=== PATIENT | female | born 1960 | race Caucasian/White ===

== ENCOUNTER 2017-12-28 12:15 | Emergency (ER) | payer MEDICARE, MEDICAID ==
[2017-12-28 14:09] VITALS: BP 121/82
--- NOTE | 2017-12-28 15:22 | UC ---
UC General HPI - HPI Summary HPI Summary: pt presents with a clinical research scientist. she is c/o a 3 days hx burn with urination. states hx of some vaginal d/c but none now. pt notes "you will not look down there". pt also c/o sometimes having abdominal pain but takes her bentyl for that. no pain at time of exam. - History of Current Complaint Chief Complaint: UCGU Stated Complaint: RIGHT SIDED ABD PAIN Time Seen by Provider: 12/28/17 14:57 Hx Obtained From: Patient, Family/Social Work Coordinator Onset/Duration: Gradual Onset Timing: Constant Onset Severity: Mild Pain Intensity: 0 Aggravating: nothing Alleviating: nothing Associated Signs & Symptoms: Positive: Dysuria. Negative: Diarrhea, Fever, Vomiting Similar Episode/Dx as: UTI - Allergy/Home Medications Allergies/Adverse Reactions: Allergies Allergy/AdvReac Type Severity Reaction Status Date / Time amoxicillin Allergy Unknown Verified 12/28/17 14:01 Reaction Details Penicillins Allergy Rash Verified 12/28/17 14:01 band aids Allergy Rash Uncoded 12/28/17 14:01 Home Medications: Home Medications Calcium Carbonate CHEW TAB* [Tums*] 500 mg PO BID PRN 12/28/17 [History Confirmed 12/28/17] Dicyclomine CAP* [Bentyl CAP*] 10 mg PO Q4H PRN 12/28/17 [History Confirmed ] Mag Hydrox/Aluminum Hyd/Simeth [Antacid M Liquid] 10 ml PO Q4H PRN 12/28/17 [ History Confirmed 12/28/17] Oxybutynin Chloride [Ditropan Xl] 10 mg PO DAILY 12/28/17 [History Confirmed ] Propranolol HCl [Propranolol HCl ER] 60 mg PO BEDTIME 12/28/17 [History Confirmed 12/28/17] Saliva Substitute Combo No.9 [Biotene] 15 ml MT DAILY 12/28/17 [History Confirmed 12/28/17] busPIRone TAB* [Buspar TAB *] 15 mg PO BID 12/28/17 [History Confirmed 12/28/17] PMH/Surg Hx/FS Hx/Imm Hx Previously Healthy: No - per triage as well Endocrine History: Thyroid Disease Psychological History: Depression - Surgical History Surgical History: Yes Surgery Procedure, Year, and Place: hysterectomy, gallbladder - Family History Known Family History: Positive: Other - [place] - Social History Occupation: Disabled Lives: Care Home Alcohol Use: None Substance Use Type: None Smoking Status (MU): Never Smoked Tobacco - Immunization History Vaccination Up to Date: Yes Review of Systems Constitutional: Negative Skin: Negative Eyes: Negative ENT: Negative Respiratory: Negative Cardiovascular: Negative Gastrointestinal: Negative Genitourinary: Dysuria Motor: Negative Neurovascular: Negative Musculoskeletal: Negative Neurological: Negative Psychological: Negative Is Patient Immunocompromised?: No All Other Systems Reviewed And Are Negative: Yes Physical Exam Triage Information Reviewed: Yes Vital Signs: Initial Vital Signs Temp 97.8 F 12/28/17 14:02 Pulse 61 12/28/17 14:02 Resp 18 12/28/17 14:02 BP 121/82 12/28/17 14:02 Pulse Ox 98 12/28/17 14:02 Vital Signs Reviewed: Yes Eye Exam: Normal ENT: Positive: Normal ENT inspection Neck: Positive: Supple, Nontender, No Lymphadenopathy Respiratory: Positive: Lungs clear, Normal breath sounds Cardiovascular: Positive: RRR, No Murmur Abdomen Description: Positive: Nontender, No Organomegaly, Soft. Negative: CVA Tenderness (R), CVA Tenderness (L), Distended, Guarding Bowel Sounds: Positive: Present Musculoskeletal: Positive: ROM Intact Neurological: Positive: Alert Psychological Exam: Other - normal response per clinical research scientist Skin Exam: Normal Diagnostics - Laboratory Diagnostic Studies Completed/Ordered: 2+ leukocytes on u/a. Course/Dx - Course Course Of Treatment: non toxic, no acute abdomen or abdominal pain at time of exam. u/a= + leukocytes, will tx for uti with culture pending. pt is refusing any type of gu inspection. - Differential Dx - Multi-Symptom Provider Diagnoses: dysuria Discharge - Discharge Plan Condition: Stable Disposition: HOME Prescriptions: Sulfamethox/Trimethoprim DS* [Bactrim DS 800/160 TAB*] 1 tab PO BID 3 Days #6 tab Patient Education Materials: Urinary Tract Infection in Women (DC) Referrals: Juanita Murry MD [Primary Care Provider] - 5 Days
== END 2017-12-28 16:02 | disposition home or self-care (01) ==
LOC: UCCORT 12:15
DX: R30.0 Dysuria (principal)
CPT/HCPCS: 81003; 87086; 99202; G0463

== ENCOUNTER 2018-04-10 14:21 | Emergency (ER) | payer MEDICARE, MEDICAID ==
[2018-04-10 14:40] VITALS: BP 110/64
--- NOTE | 2018-04-10 14:50 | UC ---
UC General HPI - HPI Summary HPI Summary: pt and her lamination machine operator notes she has sores and swelling in her left cheek for 2 days. pt denies dental pain but is to have 3 teeth on other side pulled next week. no fever. - History of Current Complaint Chief Complaint: UCGeneralIllness Stated Complaint: SWOLLEN GLANDS/SORES IN MOUTH Time Seen by Provider: 04/10/18 14:43 Hx Obtained From: Patient, Family/Foundry Finisher Onset/Duration: Gradual Onset Timing: Constant Pain Intensity: 8 Aggravating: nothing Alleviating: nothing Associated Signs & Symptoms: Negative: Fever - Allergy/Home Medications Allergies/Adverse Reactions: Allergies Allergy/AdvReac Type Severity Reaction Status Date / Time amoxicillin Allergy Unknown Verified 12/28/17 14:01 Reaction Details Penicillins Allergy Rash Verified 12/28/17 14:01 band aids Allergy Rash Uncoded 12/28/17 14:01 Home Medications: Home Medications Guaifenesin/Dextromethorphan [Guaifenesin Dm Syrup] 5 ml PO Q4H PRN 04/10/18 [ History Confirmed 04/10/18] PMH/Surg Hx/FS Hx/Imm Hx - Additional Past Medical History Additional PMH: IBS, cognitive limitation, impulse control disorder Endocrine History: Thyroid Disease Cardiovascular History: Hypertension Psychological History: Depression - Surgical History Surgical History: Yes Surgery Procedure, Year, and Place: hysterectomy, gallbladder - Family History Known Family History: Positive: Other - [place] - Social History Occupation: Disabled Lives: Snf Alcohol Use: None Substance Use Type: None Smoking Status (MU): Never Smoked Tobacco - Immunization History Vaccination Up to Date: Yes Review of Systems Constitutional: Negative Skin: Negative Eyes: Negative ENT: Negative Respiratory: Negative Cardiovascular: Negative Gastrointestinal: Negative Genitourinary: Negative Motor: Negative Neurovascular: Negative Musculoskeletal: Negative Neurological: Negative Psychological: Negative Is Patient Immunocompromised?: No All Other Systems Reviewed And Are Negative: Yes Physical Exam Triage Information Reviewed: Yes Appearance: Well-Appearing Vital Signs: Initial Vital Signs Temp 99.7 F 04/10/18 14:34 Pulse 72 04/10/18 14:34 Resp 16 04/10/18 14:34 BP 110/64 04/10/18 14:34 Pulse Ox 98 04/10/18 14:34 Eyes: Positive: Conjunctiva Clear ENT: Positive: Pharynx normal, TMs normal. Negative: Pharyngeal erythema, Nasal drainage Dental: Positive: Gross Decay/Caries @ - L upper molar, lateral sharp edge. adjacent cheek has uceration with tenderness and swelling from fx tooth. not fluctuant. Neck: Positive: Supple, Nontender, No Lymphadenopathy Respiratory: Positive: Lungs clear, Normal breath sounds Cardiovascular: Positive: RRR, No Murmur Abdomen Description: Positive: Nontender, No Organomegaly, Soft Bowel Sounds: Positive: Present Musculoskeletal: Positive: ROM Intact Neurological: Positive: Alert Psychological: Positive: Age Appropriate Behavior - baseline for pt per lamination machine operator Skin Exam: Normal Course/Dx - Course Course Of Treatment: pcn allergy but rxn not known thus will cover with clindamycin with dental and pcp referal. - Differential Dx - Multi-Symptom Provider Diagnoses: fx/decay L upper molar with secondary infected ulceration L cheek from sharp edge. Discharge - Sign-Out/Discharge Documenting (check all that apply): Discharge/Admit/Transfer - Discharge Plan Condition: Critical Disposition: HOME Prescriptions: Clindamycin Cap(NF) [Clindamycin Cap 300 mg Cap(NF)] 300 mg PO TID 7 Days #21 cap Patient Education Materials: Canker Sores (ED) Referrals: Juanita Murry MD [Primary Care Provider] - 2 Days Additional Instructions: DIAGNOSIS: DECAY AND FRACTURE TO LEFT UPPER MOLAR CAUSING INFECTED ULCERATION LEFT CHEEK FOLLOW UP DR VALLE, YOUR DENTIST SOON POSSIBLE - Billing Disposition and Condition Condition: CRITICAL Disposition: HOME
[2018-04-10] MEDS ORDERED: Ibuprofen ADULT LIQ* 600 MG/30 ML UDC PO ONE (14:58)
== END 2018-04-10 15:16 | disposition home or self-care (01) ==
LOC: UCCORT 14:21
DX: K02.9 Dental caries, unspecified (principal); S02.5XXA Fracture of tooth (traumatic), initial encounter for closed fracture; K12.1 Other forms of stomatitis; B99.8 Other infectious disease; Z88.0 Allergy status to penicillin; Z91.048 Other nonmedicinal substance allergy status; I10 Essential (primary) hypertension
CPT/HCPCS: 99212; A9270-GY; G0463

== ENCOUNTER 2018-09-16 18:46 | Emergency (ER) | payer MEDICARE, MEDICAID ==
[2018-09-16 19:24] VITALS: BP 123/96
--- NOTE | 2018-09-16 19:54 | UC ---
Laceration HPI - HPI Summary HPI Summary: 58 y/o female presents to the urgent care accompany by family welfare social work professor from the Home group c/o cutting her left ring finger w/ a glass while washing dishes around 1800PM. Pt states bleeding stopped w/ pressure. Pain is 3/10 w/ touch. She can move finger w/o any difficulty. dry cure worker is not sure when was last Tetanus vaccines. She looked at records and called penitentiary w/o any answer. Pt denies fever. numbness or tingling sensation over the finger. SOB, chest pain , abdominal pain< N/V/D. - History Of Current Complaint Chief Complaint: UCWounds Stated Complaint: LEFT RING FINGER LACERATION Time Seen by Provider: 09/16/18 19:52 Hx Obtained From: Patient Laceration Location: Finger - left ring finger laceration while washing the dishes Mechanism Of Injury: Sharp Trauma Onset/Duration: Sudden Onset - around 1800pm, Lasting Hours Severity: Mild Pain Intensity: 2 Pain Scale Used: 0-10 Numeric Aggravating Factors: Movement Related History: Dominant Hand Right - Allergies/Home Medications Allergies/Adverse Reactions: Allergies Allergy/AdvReac Type Severity Reaction Status Date / Time amoxicillin Allergy Unknown Verified 09/16/18 19:08 Reaction Details Penicillins Allergy Rash Verified 09/16/18 19:08 band aids Allergy Rash Uncoded 09/16/18 19:08 Home Medications: Home Medications Carbamide Peroxide 6.5% OTIC* [DEBROX 6.5% Otic*] 5 drop LEFT EAR BEDTIME PRN [History Confirmed 09/16/18] Liquid Band-Aid 1 udc TOPICAL DAILY PRN 09/16/18 [History Confirmed 09/16/18] Melatonin/Pyridoxine HCl (B6) [Melatonin 5 mg Tablet] 1 tab PO BEDTIME 09/16/18 [History Confirmed 09/16/18] Methyl Salicylate/Menthol [Bengay Greaseless Cream] 1 cre EX DAILY PRN 09/16/18 [History Confirmed 09/16/18] Neomycin/Bacitracin/Polymyxinb [Triple Antibiotic Ointment] 1 each TP TID PRN [History Confirmed 09/16/18] Phenyleph/Mineral Oil/Petrolat [Preparation H Ointment] 1 oin SC BID PRN [History Confirmed 09/16/18] Propranolol TAB* [Inderal TAB*] 40 mg PO BEDTIME 09/16/18 [History Confirmed 03/29] buPROPion SR TAB* [Wellbutrin SR TAB*] 200 mg PO DAILY 09/16/18 [History Confirmed 09/16/18] PMH/Surg Hx/FS Hx/Imm Hx Previously Healthy: Yes Endocrine History: Hypothyroidism Cardiovascular History: Hypertension Other GI/ History: Constipation, IBS Psychological History: Anxiety, Depression Other Psychological History: Intellectual disabilities - Surgical History Surgical History: Yes Surgery Procedure, Year, and Place: hysterectomy, gallbladder - Family History Known Family History: Positive: Hypertension, Other - [place] - Social History Occupation: Disabled Lives: Care Home Alcohol Use: None Substance Use Type: None Smoking Status (MU): Never Smoked Tobacco - Immunization History Hx Tetanus, Diphtheria Vaccination: No - unsure when was the tetanus vaccine Vaccination Up to Date: Yes Review of Systems Constitutional: Negative Skin: Other - laceration w/ a glass while washing dishes on left ring finger Eyes: Negative ENT: Negative Respiratory: Negative Cardiovascular: Negative Gastrointestinal: Negative Motor: Negative Neurovascular: Negative Musculoskeletal: Other: - left ring finger pain s/p laceration Neurological: Negative Psychological: Negative Is Patient Immunocompromised?: No All Other Systems Reviewed And Are Negative: Yes Physical Exam - Summary Physical Exam Summary: Vital Signs Reviewed: Yes General: well developed, well nourished Obese female sitting in the examining table w/o any apparent distress Eye Exam: Normal Eyes: Positive: Conjunctiva Clear - PERRLA, EOMI, fundi grossly normal ENT: Positive: Normal ENT inspection, Hearing grossly normal, Pharynx normal, TMs normal Neck: Positive: Supple, Nontender, No Lymphadenopathy Respiratory: Positive: Chest non-tender, Lungs clear, Normal breath sounds, No respiratory distress Cardiovascular: Positive: RRR, No Murmur, Pulses Normal, Brisk Capillary Refill Abdomen Description: Positive: Nontender, No Organomegaly, Soft. Negative: CVA Tenderness (R), CVA Tenderness (L) Bowel Sounds: Positive: Present Musculoskeletal: Positive: Strength Intact, ROM Intact, No Edema Neurological: Positive: Alert, Muscle Tone Normal Psychological Exam: Normal Skin: Positive: dorsal side of the distal left 4th phalanx w/ a semilunar superficial laceration about 1.0cm in size, no bleeding, no foreign body observed. mild tenderness to palpation, . FROM of LF hand and left ring finger arm, sensation intact, capillary refill brisk, and pulses WNL. Triage Information Reviewed: Yes Vital Signs: Initial Vital Signs Temp 98.9 F 09/16/18 19:21 Pulse 102 09/16/18 19:21 Resp 17 09/16/18 19:21 BP 123/96 09/16/18 19:21 Pulse Ox 98 09/16/18 19:21 Laceration Repair - Laceration Repair 1 Description: Irregular - semilunar superficial laceration on the dorsal side of distal left 4th phalanx Laceration Size After Repair: Length (cm) - 1.0cm Modified For Repair: No Cleansing Completed Via Routine Prep: Yes Irrigation With Pressure Irrigation Device: Yes Closure Material: Skin Adhesive, SteriStrips - 3 steri strips Closure Method: Single Layer Suture Of: Skin Laceration Course/Dx - Course/Dx Course Of Treatment: 58 y/o female presents to the urgent care accompany by family welfare social work professor from the Home group c/o cutting her left ring finger w/ a glass while washing dishes around 1800PM. Pt states bleeding stopped w/ pressure. Pain is 3/10 w/ touch. She can move finger w/o any difficulty. dry cure worker is not sure when was last Tetanus vaccines. She looked at records and called penitentiary w/o any answer. Pt denies fever. numbness or tingling sensation over the finger. SOB, chest pain, abdominal pain, N/V/D. Hx obtained. Pt w/ a mild superficial semilunar avulsed laceration on the dorsal side of the distal left 4th phalanx about 1.0cm in size. FROM of phalanx on examiantion.LACERATION PROCEDURE NOTE: . Copious irrigation was done with saline and the wound explored. There was no FB or deep structure injury noted. wound irrigated and cleaned w/ Iodine swabs. Laceration closed w/ skin adhesive and 3 steri-strips. Wound dressed w/ sterile gauze.The Pt tolerated the procedure well without adverse effects. Neurovascular intact and FROM of finger. Tdap ordered and applied by nurse. Pt advised if any signs of infection develop to immediately return to the urgent care of PCP for further management and treatment. Pt's BP is elevated today advised to decrease salt in diet, monitor BP and f/u with PCP for further management.Pt understood and agreed and left the clinic ambulating A &Ox3. - Differential Dx - Laceration/Wound Differental Diagnoses: Avulsion, Foreign Body, Hematoma, Laceration, Puncture Wound, Tendon Laceration Provider Diagnoses: 1- left 4th phalanx laceration repair. 2- Uncontrolled HTN Discharge - Sign-Out/Discharge Documenting (check all that apply): Patient Departure - D/C home All imaging exams completed and their final reports reviewed: No Studies - Discharge Plan Condition: Stable Disposition: HOME Patient Education Materials: Laceration (ED), Low-Sodium Diet (ED), Skin Adhesive Care (ED) Referrals: Linda Bowens MD [Primary Care Provider] - 1 Week Additional Instructions: 1- Keep wound clean and dry. Avoid washing dishes. Apply Triple antibiotic after steri-strips come off 2-Take Ibuprofen or Tylenol PO q6-8hrs prn for pain or swelling. 3- If you develop fever or redness around your finger please f/u w/ your PCP or return to the Urgent care. 4- You were given Tdap vaccine today. 5-Your BP is elevated today. please decrease salt in your diet, monitor BP and if it continues to be elevated please f/u with your PCP for further management - Billing Disposition and Condition Condition: STABLE Disposition: Home - Attestation Statements Provider Attestation: Per institutional requirements, I have reviewed the chart, however, I was not consulted specifically or made aware of this patient by the midlevel provider. I did not personally evaluate, interact with , or disposition this patient.
[2018-09-16] MEDS ORDERED: Tetan/Diph/Pertus SYR(Tdap)* 0.5 ML SYR(BOOSTRIX) use SYR IM ONE (20:28)
== END 2018-09-16 20:46 | disposition home or self-care (01) ==
LOC: UCCORT 18:46
DX: S61.215A Laceration without foreign body of left ring finger without damage to nail, initial encounter (principal); W25.XXXA Contact with sharp glass, initial encounter; Y93.G1 Activity, food preparation and clean up; Y92.190 Kitchen in other specified residential institution as the place of occurrence of the external cause; Z23 Encounter for immunization; I10 Essential (primary) hypertension; F41.9 Anxiety disorder, unspecified; F32.9 Major depressive disorder, single episode, unspecified; Z88.0 Allergy status to penicillin; Z91.048 Other nonmedicinal substance allergy status
CPT/HCPCS: 12001; 90471; 90715; 99211; G0463